=== PATIENT | female | born 1955 | race Caucasian/White ===

== ENCOUNTER 2018-12-20 08:07 | Observation (INO) ==
[2018-12-20 09:31] LABS: Basophils # 0.1 10*3/uL (0.0-0.2); Basophils % 0.9 % (0.0-0.8); Eosinophils # 0.1 10*3/uL (0.0-0.87); Eosinophils % 0.6 % (0.00-10.9); Hematocrit 54.7 VOL% (35.7-47.0); Immature Granulocytes % 0.9 %; Immature Granulocytes Absolute 0.14 #; Lymphocytes # 1.2 10*3/uL (1.4-4.0); Lymphocytes % 8.2 % (21.3-54.2); Mean Corpuscular HGB Conc 32.9 GM/DL (32-36); Mean Corpuscular Volume 82.4 FL (87-102); Mean Platelet Volume 10.1 FL (9.6-12.0); Monocytes % 3.8 % (1.7-12.7); Neutrophils % 85.6 % (38.7-73.9); Red Blood Count 6.64 MC/CUMM (3.8-5.5); Red Cell Distribution Width 17.9 % (9.3-17.3); White Blood Count 14.8 T/CUMM (4-12)
[2018-12-20 09:35] LABS: Platelet Count 1072 T/CUMM (130-400)
[2018-12-20 09:47] LABS: Calcium 9.8 MG/DL (8.5-10.1); Osmolality,Calculated 280.4 MOS/KG (273-304)
[2018-12-20] MEDS ORDERED: hydrALAZINE 20 MG/1 ML VIAL IV STA (09:56)
[2018-12-20] MEDS ORDERED: HYDROmorphone 2 MG/1 ML VIAL IV STA (10:31)
[2018-12-20] MEDS ORDERED: ONDANSETRON 4 MG/2 ML VIAL IV STA (10:31)
[2018-12-20] MEDS ORDERED: PROMETHAZINE 25 MG/1 ML VIAL IM PRN (12:22)
[2018-12-20] MEDS ORDERED: ACETAMINOPHEN 325 MG TABLET PO PRN (12:22)
[2018-12-20] MEDS ORDERED: HYDROmorphone 2 MG/1 ML VIAL IV PRN (12:22)
[2018-12-20] MEDS ORDERED: ONDANSETRON 4 MG/2 ML VIAL IV PRN (12:22)
[2018-12-20] MEDS: LACTATED RINGERS 1,000 ML IV SCH ×2 (13:05→21:32)
[2018-12-20] MEDS: KETOROLAC 15 MG/1 ML VIAL IV PRN (15:57)
[2018-12-21 05:09] LABS: Basophils # 0.1 10*3/uL (0.0-0.2); Basophils % 0.8 % (0.0-0.8); Eosinophils # 0.1 10*3/uL (0.0-0.87); Eosinophils % 0.8 % (0.00-10.9); Hematocrit 48.3 VOL% (35.7-47.0); Hemoglobin 15.7 GM/DL (12.0-16.0); Immature Granulocytes % 0.6 %; Immature Granulocytes Absolute 0.07 #; Lymphocytes # 1.8 10*3/uL (1.4-4.0); Lymphocytes % 13.9 % (21.3-54.2); Mean Corpuscular HGB Conc 32.5 GM/DL (32-36); Mean Corpuscular Volume 82.4 FL (87-102); Mean Platelet Volume 10.6 FL (9.6-12.0); Monocytes % 7.2 % (1.7-12.7); Neutrophils % 76.7 % (38.7-73.9); Platelet Count 930 T/CUMM (130-400); Red Blood Count 5.86 MC/CUMM (3.8-5.5); Red Cell Distribution Width 17.4 % (9.3-17.3); White Blood Count 12.6 T/CUMM (4-12)
[2018-12-21 05:26] LABS: Calcium 8.5 MG/DL (8.5-10.1)
[2018-12-21] MEDS: LACTATED RINGERS 1,000 ML IV SCH (05:38)
[2018-12-21] MEDS ORDERED: ENOXAPARIN 40 MG/0.4 ML SYRINGE SUBCUT SCH (06:00)
[2018-12-21] MEDS: KETOROLAC 15 MG/1 ML VIAL IV PRN (06:14)
[2018-12-21 07:58] VITALS: BP 167/80
== END 2018-12-21 10:47 | disposition home or self-care (01) ==
LOC: N.EDINP 08:07 → N.ED 08:07 → N.3E 11:42
PROVIDERS: ADMIT Surgery; ATTEND Surgery